=== PATIENT | female | born 1955 | race Caucasian/White ===

== ENCOUNTER 2019-03-16 17:48 | Emergency (ER) | payer MEDICAID ==
[~2019-03-16] VITALS: Ht 160 cm; Wt 99.6 kg
[~2019-03-16 17:48] MED LIST: ATOR20TA37 PO; FAMO20TA7 PO; GLIP-33 PO; HYDR25TA11 PO; LAMO5TB.6 PO; OXYC1TAB8 PO; TRAZ-137 PO
[2019-03-16 17:59] VITALS: BP 174/89
--- NOTE | 2019-03-16 18:35 | NUR ---
PT TO ROOM FROM LOBBY, STEADY WITH VONDA
[2019-03-16] MEDS ORDERED: VENLAFAXINE 75MG TABLET PO ONE (19:00)
== END 2019-03-16 19:18 | disposition home or self-care (01) ==
LOC: ED 19:12
DX: F41.1 Generalized anxiety disorder (principal); Z76.0 Encounter for issue of repeat prescription; I10 Essential (primary) hypertension; E11.9 Type 2 diabetes mellitus without complications; K21.9 Gastro-esophageal reflux disease without esophagitis; F17.200 Nicotine dependence, unspecified, uncomplicated
CPT/HCPCS: 99283; Q0177

== ENCOUNTER 2020-01-05 19:40 | Emergency (ER) | payer MEDICAID ==
[~2020-01-05] VITALS: Ht 157.5 cm; Wt 91.4 kg
[~2020-01-05 19:40] MED LIST changes: +HYDR-826 PO; -HYDR25TA11 PO; -TRAZ-137 PO; +TRAZ-175 PO
[2020-01-05 19:45] VITALS: BP 102/78
--- NOTE | 2020-01-05 20:18 | NUR ---
Pt alert and resting on gurney. Pt noted to have dry, non-productive cough. Pt reports cough, sore throat and difficulty breathing x1-2 weeks. Lungs clear. Pt 97% on room air. Pt in gown and on pulse ox/HR monitor. Lab and xray at bedside.
[2020-01-05 20:33] LABS: ALBUMIN 3.2 g/dL (3.4-5.0); ANION GAP 8 mmol/L (5-15); CALCIUM 8.7 mg/dL (8.5-10.1); CHLORIDE 105 mmol/L (98-107); CREATININE 1.65 mg/dL (0.55-1.02)
[2020-01-05 20:41] LABS: BASOPHILS # (AUTO) 0.07 x10^3/uL (0-0.1); BASOPHILS % (AUTO) 1 % (0-1); EOSINOPHILS # (AUTO) 0.34 x10^3/uL (0-0.4); EOSINOPHILS % (AUTO) 4 % (1-7); LYMPHOCYTES # (AUTO) 1.77 x10^3/uL (1-3.4); LYMPHOCYTES % (AUTO) 23 % (22-44); MD NO; MEAN CORPUSCULAR HEMOGLOBIN 33.2 pg (27.0-34.8); MEAN CORPUSCULAR HGB CONC 33.8 g/dL (32.4-35.8); MEAN CORPUSCULAR VOLUME 98.3 fL (80-100); MEAN PLATELET VOLUME 6.6 fL (7.4-10.4); MONOCYTES # (AUTO) 0.62 x10^3/uL (0.2-0.8); MONOCYTES % (AUTO) 8 % (2-9); NEUTROPHILS # (AUTO) 4.95 x10^3/uL (1.8-6.8); NEUTROPHILS % (AUTO) 64 % (42-75); PLATELET COUNT 268 x10^3/uL (130-400); RED BLOOD COUNT 4.13 x10^6/uL (3.82-5.3); RED CELL DISTRIBUTION WIDTH 14.1 % (9.6-15.2)
--- NOTE | 2020-01-05 20:43 | NUR ---
Flu swab collected and sent. Pt remains on room air.
[2020-01-05] MEDS ORDERED: OMNIPAQUE 350 MG/ML, 100ML BOTTLE ONE (21:00)
[2020-01-05 21:10] LABS: RAPID INFLUENZA A Negative (Negative); RAPID INFLUENZA B Negative (Negative)
--- NOTE | 2020-01-05 21:24 | NUR ---
PIV placed for CT scan. Pt remains 98% RA.
--- NOTE | 2020-01-05 21:40 | NUR ---
Pt to CT.
--- NOTE | 2020-01-05 21:51 | NUR ---
Pt returned from CT.
[2020-01-05] MEDS ORDERED: DEXAMETHASONE 4 MG/ML, 1ML IVPush ONE (22:30)
--- NOTE | 2020-01-05 22:36 | NUR ---
Pt ambulatory to restroom with walker
[2020-01-05] MEDS ORDERED: DEXAMETHASONE 4 MG/ML, 5ML ONE (22:38)
--- NOTE | 2020-01-05 22:52 | NUR ---
Pt alert and oriented at time of d/c. Pt edcuated on home care, prescription, follow-up and S/Sx to return. Pt and daughter VU. Pt ambulated out of ER.
== END 2020-01-05 22:54 | disposition home or self-care (01) ==
LOC: ED 22:48
DX: J02.0 Streptococcal pharyngitis (principal); I10 Essential (primary) hypertension; E11.9 Type 2 diabetes mellitus without complications; K21.9 Gastro-esophageal reflux disease without esophagitis; E78.5 Hyperlipidemia, unspecified; E78.00 Pure hypercholesterolemia, unspecified; R06.02 Shortness of breath
CPT/HCPCS: 36415; 70491; 71045; 71275; 80048; 82040; 85025; 87400; 93005; 96374; 99285; J1100; Q9967

== ENCOUNTER 2021-02-11 10:44 | Emergency (ER) | payer MEDICARE, MEDICAID ==
[~2021-02-11] VITALS: Ht 160 cm; Wt 87.8 kg
[~2021-02-11 10:44] MED LIST changes: +DIVA125C2 PO; +FOLI1TAB32 PO; +MIDO2.5T PO; +MULT-449 PO; +THIA100T67 PO
--- NOTE | 2021-02-11 11:22 | NUR ---
PTS DAUGHTER REPORTS PTS LEGS HAVE BEEN SWELLING UP SINCE TUESDAY WHICH HAS BEEN CAUSING PT A TON PAIN. PT IS ABLE TO WALK. WAS DISCHARGED FROM [facility] LAST NIGHT.
[2021-02-11] MEDS ORDERED: ACETAMINOPHEN 500 MG TABLET PO ONE (11:30)
[2021-02-11 11:39] LABS: BASOPHILS % (AUTO) 1 % (0-1); EOSINOPHILS % (AUTO) 2 % (1-7); LYMPHOCYTES % (AUTO) 33 % (22-44); MEAN CORPUSCULAR HEMOGLOBIN 32.7 pg (27.0-34.8); MEAN CORPUSCULAR HGB CONC 33.1 g/dL (32.4-35.8); MEAN PLATELET VOLUME 7.1 fL (7.4-10.4); MONOCYTES % (AUTO) 9 % (2-9); NEUTROPHILS % (AUTO) 55 % (42-75); PLATELET COUNT 233 x10^3/uL (130-400); RED BLOOD COUNT 3.13 x10^6/uL (3.82-5.3); RED CELL DISTRIBUTION WIDTH 14.6 % (9.6-15.2)
[2021-02-11 11:50] LABS: ALANINE AMINOTRANSFERASE 11 U/L (12-78); ALBUMIN 2.3 g/dL (3.4-5.0); ANION GAP 7 mmol/L (5-15); CALCIUM 8.1 mg/dL (8.5-10.1); CHLORIDE 113 mmol/L (98-107); CREATININE 0.93 mg/dL (0.55-1.02)
[2021-02-11 11:52] LABS: ALKALINE PHOSPHATASE 65 U/L (45-117); BILIRUBIN,TOTAL 0.4 mg/dL (0.2-1.0); TOTAL PROTEIN 6.3 g/dL (6.4-8.2)
[2021-02-11 11:57] LABS: MD NO
[2021-02-11] MEDS ORDERED: ACETAMINOPHEN 500 MG TABLET ONE (12:10)
[2021-02-11 13:00] VITALS: BP 96/59
== END 2021-02-11 14:15 | disposition home or self-care (01) ==
LOC: ED 11:58
DX: R60.0 Localized edema (principal); R94.31 Abnormal electrocardiogram [ECG] [EKG]; I10 Essential (primary) hypertension; E11.9 Type 2 diabetes mellitus without complications; E78.5 Hyperlipidemia, unspecified; K21.9 Gastro-esophageal reflux disease without esophagitis; G89.29 Other chronic pain
CPT/HCPCS: 36415; 80053; 85025; 93005; 93970; 99285